=== PATIENT | male | born 1970 | race African-American/Black ===

== ENCOUNTER 2018-10-10 12:37 | Outpatient (CLI) | payer OTHER | END 2018-10-10 23:59 | disposition home or self-care (01) | LOC: RAD 12:37 | PROVIDERS: ATTEND Family Medicine Adult Medicine | DX: S83.281A Other tear of lateral meniscus, current injury, right knee, initial encounter (principal); X58.XXXA Exposure to other specified factors, initial encounter; Y93.89 Activity, other specified; Y92.89 Other specified places as the place of occurrence of the external cause; Y99.8 Other external cause status ==